=== PATIENT | male | born 1970 | race Caucasian/White ===

== ENCOUNTER 2023-10-23 18:10 | Emergency (ER) | payer SELFPAY ==
[2023-10-23] MEDS: levETIRAcetam 500 MG Tab PO STA (19:24)
== END 2023-10-23 19:25 ==
LOC: MW.ED 18:10
DX: Z02.89 Encounter for other administrative examinations (principal); E10.9 Type 1 diabetes mellitus without complications; Z86.69 Personal history of other diseases of the nervous system and sense organs; Z79.899 Other long term (current) drug therapy; Z79.4 Long term (current) use of insulin; Z88.2 Allergy status to sulfonamides; Z75.8 Other problems related to medical facilities and other health care
CPT/HCPCS: 82947; 99283; A9270